=== PATIENT | male | born 1970 | race Caucasian/White ===

== ENCOUNTER 2018-04-03 14:30 | Outpatient (RCR) | payer OTHER ==
[2015-04-16 00:30] VITALS: BP 144/89
[~2018-04-03 14:30] MED LIST: ALLEGRA D 12 HO1 TER PO
[2018-04-11] MEDS ORDERED: SINGULAIR PO (06:12)
[2018-04-11] MEDS ORDERED: SYNTHROID0.05 MG PO (06:12)
[2018-04-11] MEDS ORDERED: PRILOSEC OTC20 MG PO (06:12)
[2018-04-11] MEDS ORDERED: NORCO 325 MG-51 TA1 PO (07:44)
== END 2018-05-29 | disposition home or self-care (01) ==
LOC: PT
DX: M48.02 Spinal stenosis, cervical region (principal); M54.12 Radiculopathy, cervical region; M62.838 Other muscle spasm

== ENCOUNTER 2018-04-11 05:57 | Emergency (ER) | payer OTHER ==
[~2018-04-11] VITALS: Ht 177.8 cm; Wt 95.5 kg
[2018-04-11] MEDS ORDERED: SYNTHROID0.05 MG PO (06:12)
[2018-04-11] MEDS ORDERED: PRILOSEC OTC20 MG PO (06:12)
[2018-04-11] MEDS ORDERED: SINGULAIR PO (06:12)
[2018-04-11] MEDS ORDERED: NORCO 325 MG-51 TA1 PO (07:44)
[2018-04-11 08:16] VITALS: BP 132/88
== END 2018-04-11 08:17 | disposition home or self-care (01) ==
LOC: ED 05:57
DX: S92.355A Nondisplaced fracture of fifth metatarsal bone, left foot, initial encounter for closed fracture (principal); W17.89XA Other fall from one level to another, initial encounter; Y92.009 Unspecified place in unspecified non-institutional (private) residence as the place of occurrence of the external cause; Z79.899 Other long term (current) drug therapy

== ENCOUNTER → 2021-03-10 | Day surgery (SDC) | payer BC, OTHER ==
[~2021-03-10] MED LIST changes: +AMOXICILLIN875 MG PO; +MOTION RELIEF25 MG PO; +NORCO 325 MG-51 TA1 PO; +PREDNISONE20 M1 PO; +PRILOSEC OTC20 MG PO; +SINGULAIR PO; +SYNTHROID0.05 MG PO; +ZOFRAN ODT4 MG PO
== END | disposition home or self-care (01) ==
LOC: MSO 08:57
DX: K21.00 Gastro-esophageal reflux disease with esophagitis, without bleeding (principal); K22.2 Esophageal obstruction; E03.9 Hypothyroidism, unspecified; I12.9 Hypertensive chronic kidney disease with stage 1 through stage 4 chronic kidney disease, or unspecified chronic kidney disease; N18.31 Chronic kidney disease, stage 3a; E66.9 Obesity, unspecified; J30.9 Allergic rhinitis, unspecified; G47.33 Obstructive sleep apnea (adult) (pediatric); Z68.34 Body mass index [BMI] 34.0-34.9, adult; Z79.890 Hormone replacement therapy; Z79.899 Other long term (current) drug therapy
CPT/HCPCS: 00731; C1769; J2704; J7120

== ENCOUNTER 2023-12-09 15:50 | Emergency (ER) | payer BC, OTHER ==
[~2023-12-09] VITALS: Ht 177.8 cm; Wt 102.2 kg
[~2023-12-09 15:50] MED LIST changes: +AMOXICILLIN AND1 TA2 PO
[2023-12-09] MEDS ORDERED: PANTOPRAZOLE SO40 MG PO (16:01)
[2023-12-09 16:31] LABS: BASO # 0.03 K/mm3 (0.02-0.10); EOS # 0.77 K/mm3 (0.04-0.40); EOS % 8.2 % (0.0-4.0); HEMATOCRIT 42.8 % (42.0-52.0); HEMOGLOBIN 15.4 g/dL (13.5-18.0); LYMPH# 1.98 K/mm3 (1.50-4.00); MEAN CELL VOLUME 91 fl (78-100); MEAN CORPUSCULAR HEMOGLOBIN 33 pg (27-31); MEAN CORPUSCULAR HGB CONC 36 g/dL (33-37); MEAN PLATELET VOLUME 10.2 fl (7.4-10.4); MONO # 0.73 K/mm3 (0.20-0.80); NEU # 5.89 K/mm3 (1.40-6.50); PLATELET COUNT 294 K/mm3 (130-400); RED BLOOD COUNT 4.73 M/mm3 (4.20-5.60); RED CELL DISTRIBUTION WIDTH 12.8 % (11.5-14.5); WHITE BLOOD COUNT 9.4 K/mm3 (4.8-10.8)
[2023-12-09 16:34] LABS: ALBUMIN 4.5 g/dL (3.5-5.0)
[2023-12-09 16:35] LABS: SODIUM 140 mmol/L (136-145)
[2023-12-09 16:36] LABS: CALCIUM 9.7 mg/dL (8.3-10.5)
[2023-12-09 16:37] LABS: GLUCOSE 92 mg/dL (75-110); TOTAL PROTEIN 7.3 g/dL (6.4-8.3)
[2023-12-09 16:38] LABS: CARBON DIOXIDE 22 mmol/L (22-29)
[2023-12-09 16:39] LABS: TOTAL BILIRUBIN 0.2 mg/dL (0.2-1.2)
[2023-12-09 16:42] LABS: AST-SGOT 19 U/L (5-34)
[2023-12-09 16:44] LABS: ALT/SGPT 27 U/L (0-55)
[2023-12-09 16:51] LABS: TROPONIN-I < 0.030 ng/mL (0.00-0.033)
[2023-12-09 17:13] LABS: D-DIMER 0.07 mg/L FEU (0.15-0.50)
[2023-12-09] MEDS ORDERED: DOCUSATE SODIUM 100 MG/10 ML PO ONE (18:45)
[2023-12-09 19:28] VITALS: BP 139/90
== END 2023-12-09 19:28 | disposition home or self-care (01) ==
LOC: ED 15:50
PROVIDERS: Physician Assistant
DX: R07.9 Chest pain, unspecified (principal); H61.22 Impacted cerumen, left ear